=== PATIENT | female | born 1960 | race Caucasian/White ===

== ENCOUNTER 2016-12-05 15:00 | Emergency (ER) | payer OTHER ==
[~2016-12-05] VITALS: Ht 165.1 cm; Wt 63.8 kg
[2016-12-05] MEDS ORDERED: SODIUM CHLORIDE FLUSH 10ML SYR IVF ONE (15:30)
[2016-12-05] MEDS ORDERED: SODIUM CHLORIDE 0.9% 1,000ML IVBOLUS ONE (15:30)
[2016-12-05] MEDS ORDERED: PROCHLORPERAZINE 5 MG/ML, 2ML IVPush ONE (15:30)
[2016-12-05] MEDS ORDERED: DIAZEPAM 5 MG/ML, 2ML IV ONE (15:30)
[2016-12-05] MEDS ORDERED: DIAZEPAM 5 MG TABLET ONE (15:46)
[2016-12-05] MEDS ORDERED: DIAZEPAM 5 MG TABLET PO ONE (16:00)
[2016-12-05 16:05] LABS: BLOOD UREA NITROGEN 19 mg/dL (7-18)
[2016-12-05 16:09] LABS: IS PT STATUS REG ER OR PRE ER? YES
[2016-12-05] MEDS ORDERED: PROCHLORPERAZINE 5 MG/ML, 2ML ONE (16:55)
[2016-12-05 17:03] VITALS: BP 131/79
[2016-12-05] MEDS ORDERED: OMNIPAQUE 350 MG/ML, 100ML BOTTLE ONE (17:13)
== END 2016-12-05 18:32 | disposition home or self-care (01) ==
LOC: ED 15:37
DX: R42 Dizziness and giddiness (principal); R51 Headache
CPT/HCPCS: 36415; 70496; 70498; 80048; 82040; 83880; 84484; 85025; 93005; 96374; 99285; J0780; Q9967

== ENCOUNTER 2016-12-25 12:14 | Emergency (ER) | payer OTHER ==
[~2016-12-25] VITALS: Ht 165.1 cm; Wt 65.5 kg
[2016-12-25 12:15] VITALS: BP 129/85
== END 2016-12-25 13:11 | disposition home or self-care (01) ==
LOC: ED 13:09
DX: S16.1XXA Strain of muscle, fascia and tendon at neck level, initial encounter (principal); M54.12 Radiculopathy, cervical region; X58.XXXA Exposure to other specified factors, initial encounter; Y93.89 Activity, other specified; Y99.8 Other external cause status; Y92.89 Other specified places as the place of occurrence of the external cause
CPT/HCPCS: 99283; J7512

== ENCOUNTER → 2016-12-28 | Outpatient (CLI) | payer OTHER | END | disposition home or self-care (01) | LOC: CFH 14:21 | PROVIDERS: ATTEND Orthopaedic Surgery | DX: M47.892 Other spondylosis, cervical region (principal); M43.22 Fusion of spine, cervical region; M43.14 Spondylolisthesis, thoracic region; Z98.1 Arthrodesis status; Z98.890 Other specified postprocedural states | CPT/HCPCS: 72050; 72110 ==

== ENCOUNTER → 2017-12-22 | Outpatient (CLI) | payer OTHER ==
[2017-12-22 09:29] LABS: CHOL/HDL RATIO 2.6; LDL/HDL RATIO 1.4 (0.5-3.0)
[2017-12-22 10:04] LABS: HEMOGLOBIN A1C 5.1 % (4.2-6.3)
== END | disposition home or self-care (01) ==
LOC: CFH 07:39
PROVIDERS: ATTEND Family Medicine
DX: Z12.31 Encounter for screening mammogram for malignant neoplasm of breast (principal)
CPT/HCPCS: 36415; 80061; 83036; 86803; 77067

== ENCOUNTER → 2018-01-06 | Outpatient (CLI) | payer OTHER ==
[~2018-01-06] MED LIST: GADOBUTROL 10 MMOL/10 ML VIAL ONE
== END | disposition home or self-care (01) ==
LOC: CFH 13:27
PROVIDERS: ATTEND Family Medicine
DX: C50.411 Malignant neoplasm of upper-outer quadrant of right female breast (principal); Z88.0 Allergy status to penicillin
CPT/HCPCS: A9585; C8908

== ENCOUNTER 2018-02-11 09:26 | Day surgery (SDC) | payer OTHER ==
[~2018-02-11] VITALS: Ht 165.1 cm; Wt 64.2 kg
[~2018-02-11 09:26] MED LIST changes: +BUPIVACAINE/PF-EPI 0.5% 1:200K ONE; -CALCIUM PO; -GADOBUTROL 7.5 MMOL/7.5 ML VIAL ONE; +HEPARIN 1,000 UNITS/ML, 10ML ONE; -MAGNESIUM PO; -PROBIOTIC PO
[2018-02-11] MEDS ORDERED: LACTATED RINGERS 1,000 ML IV SCH (09:53)
[2018-02-11] MEDS ORDERED: GABAPENTIN 300 MG CAPSULE PO ONE (10:00)
[2018-02-11] MEDS ORDERED: SCOPOLAMINE PATCH, 1.5MG PATCH.TD72 TD ONE (10:00)
[2018-02-11] MEDS ORDERED: ONDANSETRON 2MG/ML, 2ML IVPush ONE (10:00)
[2018-02-11] MEDS ORDERED: ACETAMINOPHEN 500 MG TABLET PO ONE (10:00)
[2018-02-11] MEDS ORDERED: CALCIUM PO (10:02)
[2018-02-11] MEDS ORDERED: MAGNESIUM PO (10:02)
[2018-02-11] MEDS ORDERED: PROBIOTIC PO (10:03)
[2018-02-11 10:07] VITALS: BP 125/82
[2018-02-11] MEDS ORDERED: FENTANYL PF 100 MCG/2ML ONE ×2 (10:41→12:41)
[2018-02-11] MEDS ORDERED: MIDAZOLAM 1 MG/ML, 2ML ONE (10:41)
[2018-02-11] MEDS ORDERED: CEFAZOLIN 1,000 MG ONE (11:21)
[2018-02-11] MEDS ORDERED: DEXAMETHASONE 4 MG/ML, 1ML ONE (11:21)
[2018-02-11] MEDS ORDERED: PROPOFOL 10 MG/ML, 20ML ONE (11:21)
[2018-02-11] MEDS ORDERED: LIDOCAINE-MPF 2% ,5ML ONE (11:21)
[2018-02-11] MEDS ORDERED: PROMETHAZINE 25 MG/ML, 1ML IV PRN (11:30)
[2018-02-11] MEDS ORDERED: MORPHINE SULFATE 4 MG/ML, 1ML IVPush PRN (11:30)
[2018-02-11] MEDS ORDERED: FENTANYL PF 100 MCG/2ML IV PRN (11:30)
[2018-02-11] MEDS ORDERED: OXYcodone 5 MG/5 ML ORAL.SOL UDC PO PRN (11:30)
[2018-02-11] MEDS ORDERED: LORazepam 2 MG/ML, 1ML IVPush PRN (11:30)
[2018-02-11] MEDS ORDERED: ONDANSETRON 2MG/ML, 2ML IV PRN (11:30)
[2018-02-11] MEDS ORDERED: PROMETHAZINE 25 MG SUPP PR PRN (11:30)
[2018-02-11] MEDS ORDERED: OXYcodone 5 MG/5 ML ORAL.SOL UDC ONE (12:41)
== END 2018-02-11 14:00 | disposition home or self-care (01) ==
LOC: OUT 09:26
PROVIDERS: ATTEND Surgery
DX: Z45.2 Encounter for adjustment and management of vascular access device (principal); C50.911 Malignant neoplasm of unspecified site of right female breast; F41.9 Anxiety disorder, unspecified; Z98.890 Other specified postprocedural states; Z90.710 Acquired absence of both cervix and uterus; Z98.51 Tubal ligation status; Z72.89 Other problems related to lifestyle; Z88.0 Allergy status to penicillin
CPT/HCPCS: 36561; 71045; 77001; C1769; C1788; J0690; J1100; J1644; J2250; J2405; J2704; J3010; J3490; J7120

== ENCOUNTER → 2018-02-11 | Outpatient (CLI) | payer OTHER ==
[~2018-02-11] MED LIST changes: +CALCIUM PO; -GADOBUTROL 10 MMOL/10 ML VIAL ONE; +GADOBUTROL 7.5 MMOL/7.5 ML VIAL ONE; +MAGNESIUM PO; +PROBIOTIC PO
== END | disposition home or self-care (01) ==
LOC: CFH 06:44
PROVIDERS: ATTEND Surgery
DX: D05.12 Intraductal carcinoma in situ of left breast (principal)
CPT/HCPCS: 19085; 77065; 88305; A9585

== ENCOUNTER → 2018-02-18 | Outpatient (CLI) | payer OTHER ==
[~2018-02-18] MED LIST changes: -BUPIVACAINE/PF-EPI 0.5% 1:200K ONE; +CALCIUM PO; -HEPARIN 1,000 UNITS/ML, 10ML ONE; +MAGNESIUM PO; +PROBIOTIC PO
[2018-02-18 16:01] LABS: ALANINE AMINOTRANSFERASE 69 U/L (12-78); ALBUMIN 3.9 g/dL (3.4-5.0); ANION GAP 8 mmol/L (5-15); CALCIUM 9.1 mg/dL (8.5-10.1); CHLORIDE 107 mmol/L (98-107)
[2018-02-18 16:04] LABS: ALKALINE PHOSPHATASE 81 U/L (45-117); BILIRUBIN,TOTAL 0.4 mg/dL (0.2-1.0); TOTAL PROTEIN 7.3 g/dL (6.4-8.2)
[2018-02-18 16:10] LABS: BASOPHILS # (AUTO) 0.04 x10^3/uL (0-0.1); BASOPHILS % (AUTO) 0 % (0-1); EOSINOPHILS # (AUTO) 0.03 x10^3/uL (0-0.4); EOSINOPHILS % (AUTO) 0 % (1-7); LYMPHOCYTES % (AUTO) 13 % (22-44); MD NO; MEAN CORPUSCULAR HEMOGLOBIN 30.7 pg (27.0-34.8); MEAN CORPUSCULAR HGB CONC 33.5 g/dL (32.4-35.8); MEAN CORPUSCULAR VOLUME 91.8 fL (80-100); MEAN PLATELET VOLUME 8.8 fL (7.4-10.4); MONOCYTES # (AUTO) 0.57 x10^3/uL (0.2-0.8); MONOCYTES % (AUTO) 6 % (2-9); NEUTROPHILS # (AUTO) 7.26 x10^3/uL (1.8-6.8); NEUTROPHILS % (AUTO) 80 % (42-75); PLATELET COUNT 277 x10^3/uL (130-400); RED BLOOD COUNT 4.02 x10^6/uL (3.82-5.3); RED CELL DISTRIBUTION WIDTH 14.9 % (9.6-15.2)
== END | disposition home or self-care (01) ==
LOC: PETCFH 11:47
PROVIDERS: ATTEND Internal Medicine Hematology & Oncology
DX: R22.1 Localized swelling, mass and lump, neck (principal)
CPT/HCPCS: 36415; 78306; 80053; 85025; 93306; A9503

== ENCOUNTER → 2018-02-23 | Outpatient (CLI) | payer OTHER ==
[~2018-02-23] MED LIST changes: +CALC1CAP8 PO; +L.AC1CAP6 PO; +MAGN400T36 PO; +OMNIPAQUE 350 MG/ML, 100ML BOTTLE ONE
== END | disposition home or self-care (01) ==
LOC: CFH 11:50
PROVIDERS: ATTEND Internal Medicine Hematology & Oncology
DX: D73.4 Cyst of spleen (principal); M43.27 Fusion of spine, lumbosacral region; Z90.710 Acquired absence of both cervix and uterus
CPT/HCPCS: 71260; 74177; Q9967

== ENCOUNTER → 2018-03-07 | Outpatient (CLI) | payer OTHER ==
[~2018-03-07] MED LIST changes: -OMNIPAQUE 350 MG/ML, 100ML BOTTLE ONE
[2018-03-07 15:36] LABS: MEAN CORPUSCULAR HEMOGLOBIN 29.5 pg (27.0-34.8); MEAN CORPUSCULAR HGB CONC 33.1 g/dL (32.4-35.8); MEAN PLATELET VOLUME 7.2 fL (7.4-10.4); PLATELET COUNT 263 x10^3/uL (130-400); RED BLOOD COUNT 4.06 x10^6/uL (3.82-5.3); RED CELL DISTRIBUTION WIDTH 15.4 % (9.6-15.2)
[2018-03-07 15:48] LABS: ALBUMIN 3.7 g/dL (3.4-5.0); ANION GAP 8 mmol/L (5-15); CALCIUM 8.7 mg/dL (8.5-10.1); CHLORIDE 106 mmol/L (98-107)
[2018-03-07 15:51] LABS: ALANINE AMINOTRANSFERASE 46 U/L (12-78); ALKALINE PHOSPHATASE 145 U/L (45-117); BILIRUBIN,TOTAL 0.2 mg/dL (0.2-1.0); CREATININE 0.77 mg/dL (0.55-1.02)
[2018-03-07 16:07] LABS: MD YES
[2018-03-07 16:09] LABS: BAND#(MANUAL) 1.34 x10^3/uL; BANDS%(MANUAL) 6 % (0-7); LYMPH#(MANUAL) 2.69 x10^3/uL (1-3.4); LYMPHS% (MANUAL) 12 % (22-44); METAMYELOCYTES# (MANUAL) 0.22 x10^3/uL (0-0); METAMYELOCYTES% (MANUAL) 1 % (0-1); MONOS#(MANUAL) 1.12 x10^3/uL (0.3-2.7); MONOS% (MANUAL) 5 % (2-9); MYELOCYTES# (MANUAL) 0.22 x10^3/uL (0-0); MYELOCYTES% (MANUAL) 1 % (0-0); SEGS% (MANUAL) 75 % (42-75)
[2018-03-07 16:10] LABS: <RBC MORPHOLOGY> NORMAL; TOXIC GRAN 1+
[2018-03-07 16:11] LABS: <PLATELET ESTIMATE> ADEQUATE; <PLT MORPHOLOGY> NORMAL PLT MORPH
== END | disposition home or self-care (01) ==
LOC: LAB 15:20
PROVIDERS: ATTEND Internal Medicine Hematology & Oncology
DX: Z51.12 Encounter for antineoplastic immunotherapy (principal); C50.411 Malignant neoplasm of upper-outer quadrant of right female breast; D70.1 Agranulocytosis secondary to cancer chemotherapy
CPT/HCPCS: 36415; 80053; 85025

== ENCOUNTER 2018-03-25 13:50 | Emergency (ER) | payer OTHER ==
[~2018-03-25] VITALS: Ht 165.1 cm; Wt 60.0 kg
[2018-03-25] MEDS ORDERED: ONDANSETRON 2MG/ML, 2ML ONE (15:21)
[2018-03-25 15:29] LABS: BASOPHILS # (AUTO) 0.03 x10^3/uL (0-0.1); BASOPHILS % (AUTO) 1 % (0-1); EOSINOPHILS # (AUTO) 0.05 x10^3/uL (0-0.4); EOSINOPHILS % (AUTO) 1 % (1-7); LYMPHOCYTES # (AUTO) 1.89 x10^3/uL (1-3.4); LYMPHOCYTES % (AUTO) 29 % (22-44); MD NO; MEAN CORPUSCULAR HEMOGLOBIN 29.8 pg (27.0-34.8); MEAN CORPUSCULAR HGB CONC 33.1 g/dL (32.4-35.8); MEAN PLATELET VOLUME 7.8 fL (7.4-10.4); MONOCYTES # (AUTO) 0.92 x10^3/uL (0.2-0.8); MONOCYTES % (AUTO) 14 % (2-9); NEUTROPHILS # (AUTO) 3.55 x10^3/uL (1.8-6.8); NEUTROPHILS % (AUTO) 55 % (42-75); PLATELET COUNT 322 x10^3/uL (130-400); RED BLOOD COUNT 3.87 x10^6/uL (3.82-5.3); RED CELL DISTRIBUTION WIDTH 16.5 % (9.6-15.2)
[2018-03-25] MEDS ORDERED: SODIUM CHLORIDE 0.9% 1,000ML IVBOLUS ONE ×2 (15:30→16:00)
[2018-03-25] MEDS ORDERED: ONDANSETRON 2MG/ML, 2ML IVPush ONE (15:30)
[2018-03-25 15:42] LABS: ALBUMIN 3.6 g/dL (3.4-5.0); ANION GAP 7 mmol/L (5-15); CALCIUM 8.6 mg/dL (8.5-10.1); CHLORIDE 106 mmol/L (98-107)
[2018-03-25 15:43] LABS: CREATININE 0.73 mg/dL (0.55-1.02)
[2018-03-25 16:50] VITALS: BP 105/60
== END 2018-03-25 17:59 | disposition home or self-care (01) ==
LOC: ED 17:40
DX: E86.0 Dehydration (principal); R11.2 Nausea with vomiting, unspecified; M54.12 Radiculopathy, cervical region
CPT/HCPCS: 36415; 80048; 82040; 85025; 96361; 96374; 99284; J2405; J7030

== ENCOUNTER → 2018-04-11 | Outpatient (CLI) | payer OTHER ==
[2018-04-11 14:57] LABS: ALANINE AMINOTRANSFERASE 151 U/L (12-78); ALBUMIN 3.6 g/dL (3.4-5.0); ANION GAP 8 mmol/L (5-15); CALCIUM 8.9 mg/dL (8.5-10.1); CHLORIDE 106 mmol/L (98-107); CREATININE 0.58 mg/dL (0.55-1.02)
[2018-04-11 15:00] LABS: ALKALINE PHOSPHATASE 156 U/L (45-117); BILIRUBIN,TOTAL 0.4 mg/dL (0.2-1.0)
== END | disposition home or self-care (01) ==
LOC: LAB 14:27
PROVIDERS: ATTEND Internal Medicine Hematology & Oncology
DX: C50.411 Malignant neoplasm of upper-outer quadrant of right female breast (principal); D70.1 Agranulocytosis secondary to cancer chemotherapy
CPT/HCPCS: 36415; 80053

== ENCOUNTER → 2018-05-11 | Outpatient (CLI) | payer OTHER | END | disposition home or self-care (01) | LOC: CFH 09:50 | PROVIDERS: ATTEND Surgery | DX: C50.411 Malignant neoplasm of upper-outer quadrant of right female breast (principal) | CPT/HCPCS: 76641; 77065; G0279 ==

== ENCOUNTER 2018-05-12 08:28 | Outpatient (CLI) | payer OTHER ==
[2018-05-12] MEDS ORDERED: GADOBUTROL 7.5 MMOL/7.5 ML VIAL ONE (10:41)
== END 2018-05-12 23:59 | disposition home or self-care (01) ==
LOC: CFH 08:28
PROVIDERS: ATTEND Surgery
DX: C50.411 Malignant neoplasm of upper-outer quadrant of right female breast (principal)
CPT/HCPCS: 77049; A9585

== ENCOUNTER → 2018-06-22 | Outpatient (CLI) | payer OTHER | END | disposition home or self-care (01) | LOC: RAD 14:33 | PROVIDERS: ATTEND Surgery | DX: C50.911 Malignant neoplasm of unspecified site of right female breast (principal) | CPT/HCPCS: 38792; A9541 ==

== ENCOUNTER 2018-06-23 05:28 | Day surgery (SDC) | payer OTHER ==
[~2018-06-23] VITALS: Ht 165.1 cm; Wt 63.9 kg
[~2018-06-23 05:28] MED LIST changes: +LIDOCAINE 1%, 20ML ONE; +LIDOCAINE-MPF 1%, 5ML ONE; +SODIUM BICARBONATE 4.0%, 5ML ONE
[2018-06-23] MEDS ORDERED: LACTATED RINGERS 1,000 ML IV SCH (06:12)
[2018-06-23 06:14] VITALS: BP 119/59
[2018-06-23] MEDS ORDERED: BACITRACIN 50,000 UNIT ONE (06:25)
[2018-06-23] MEDS ORDERED: BUPIVACAINE/PF-EPI 0.5% 1:200K ONE (06:25)
[2018-06-23] MEDS ORDERED: ISOSULFAN BLUE 10 MG/ML, 5ML IV ONE (06:25)
[2018-06-23] MEDS ORDERED: GENTAMICIN 80 MG/2 ML ONE (06:25)
[2018-06-23] MEDS ORDERED: CEFAZOLIN 1,000 MG ONE ×2 (06:25→15:25)
[2018-06-23] MEDS ORDERED: SCOPOLAMINE PATCH, 1.5MG PATCH.TD72 TD ONE (06:30)
[2018-06-23] MEDS ORDERED: ACETAMINOPHEN 500 MG TABLET PO ONE (06:30)
[2018-06-23] MEDS ORDERED: GABAPENTIN 300 MG CAPSULE PO ONE (06:30)
[2018-06-23] MEDS ORDERED: ONDANSETRON 2MG/ML, 2ML IVPush ONE (06:30)
[2018-06-23] MEDS ORDERED: FENTANYL PF 250 MCG/5ML ONE (06:55)
[2018-06-23] MEDS ORDERED: MIDAZOLAM 1 MG/ML, 2ML ONE (06:55)
[2018-06-23] MEDS ORDERED: ONDANSETRON 2MG/ML, 2ML IVPush PRN (08:00)
[2018-06-23] MEDS ORDERED: METOCLOPRAMIDE 5 MG/ML, 2ML IV PRN (08:00)
[2018-06-23] MEDS ORDERED: ALBUTEROL SULFATE 2.5 MG/3 ML NPPB PRN (08:00)
[2018-06-23] MEDS ORDERED: PROMETHAZINE 25 MG/ML, 1ML IV PRN (08:00)
[2018-06-23] MEDS ORDERED: LABETALOL 5MG/ML, 20ML IV PRN (08:00)
[2018-06-23] MEDS ORDERED: KETOROLAC 30 MG/1 ML IV PRN (08:00)
[2018-06-23] MEDS ORDERED: hydrALAzine 20 MG/ML, 1ML IV PRN (08:00)
[2018-06-23] MEDS ORDERED: OXYcodone 5 MG/5 ML ORAL.SOL UDC PO PRN (08:00)
[2018-06-23] MEDS ORDERED: HYDROmorphone 1 MG/ML, 1ML IV PRN (08:00)
[2018-06-23] MEDS: FENTANYL PF 100 MCG/2ML IV PRN ×2 (10:45→10:55)
[2018-06-23] MEDS ORDERED: FENTANYL PF 100 MCG/2ML ONE (10:47)
[2018-06-23] MEDS ORDERED: OXYcodone 5 MG/5 ML ORAL.SOL UDC ONE (10:48)
[2018-06-23] MEDS ORDERED: MEPERIDINE/PF 25MG/ML,1ML ONE (10:56)
[2018-06-23] MEDS ORDERED: KETOROLAC 30 MG/1 ML ONE (10:56)
[2018-06-23] MEDS: MEPERIDINE/PF 25MG/0.5ML IVPush PRN ×2 (11:10→11:25)
[2018-06-23] MEDS ORDERED: morphine SULFATE 10 MG/ML, 1ML IVPush PRN (12:30)
[2018-06-23] MEDS ORDERED: PROPOFOL 10 MG/ML, 20ML ONE (15:25)
[2018-06-23] MEDS ORDERED: ONDANSETRON 2MG/ML, 2ML ONE (15:25)
[2018-06-23] MEDS ORDERED: ROCURONIUM 10MG/ML,5ML ONE (15:25)
[2018-06-23] MEDS ORDERED: DEXAMETHASONE 4 MG/ML, 1ML ONE (15:25)
[2018-06-23] MEDS ORDERED: SUCCINYLCHOLINE 20 MG/ML, 10ML ONE (15:25)
== END 2018-06-23 16:00 | disposition home or self-care (01) ==
LOC: OUT 05:28
PROVIDERS: ATTEND Surgery
DX: D05.11 Intraductal carcinoma in situ of right breast (principal); D05.12 Intraductal carcinoma in situ of left breast; R59.1 Generalized enlarged lymph nodes; F41.9 Anxiety disorder, unspecified; Z88.0 Allergy status to penicillin; Z90.710 Acquired absence of both cervix and uterus; Z98.890 Other specified postprocedural states; Z98.51 Tubal ligation status; Z72.89 Other problems related to lifestyle
CPT/HCPCS: 15777; 19303; 19357; 38525; 76098; 88305; 88307; 88329; 88333; C1729; C1762; J0330; J0690; J1100; J1580; J1885; J2175; J2250; J2270; J2405; J2704; J3010; J7120; J3490

== ENCOUNTER → 2018-08-04 | Outpatient (CLI) | payer OTHER ==
[~2018-08-04] MED LIST changes: +GABA300C10 PO; -LIDOCAINE 1%, 20ML ONE; -LIDOCAINE-MPF 1%, 5ML ONE; -SODIUM BICARBONATE 4.0%, 5ML ONE
[2018-08-04 10:00] LABS: ALANINE AMINOTRANSFERASE 84 U/L (12-78); ALBUMIN 3.9 g/dL (3.4-5.0); ANION GAP 5 mmol/L (5-15); CALCIUM 9.5 mg/dL (8.5-10.1); CHLORIDE 108 mmol/L (98-107); CREATININE 0.79 mg/dL (0.55-1.02)
[2018-08-04 10:04] LABS: ALKALINE PHOSPHATASE 123 U/L (45-117); BILIRUBIN,TOTAL 0.5 mg/dL (0.2-1.0); TOTAL PROTEIN 7.2 g/dL (6.4-8.2)
== END | disposition home or self-care (01) ==
LOC: LAB 09:23
PROVIDERS: ATTEND Family Medicine
DX: R94.5 Abnormal results of liver function studies (principal)
CPT/HCPCS: 36415; 80053

== ENCOUNTER → 2018-08-19 | Outpatient (CLI) | payer OTHER ==
[2018-08-19 10:29] LABS: ALANINE AMINOTRANSFERASE 68 U/L (12-78); ALBUMIN 3.9 g/dL (3.4-5.0); ANION GAP 8 mmol/L (5-15); CALCIUM 9.3 mg/dL (8.5-10.1); CHLORIDE 106 mmol/L (98-107); CREATININE 0.73 mg/dL (0.55-1.02)
[2018-08-19 10:31] LABS: ALKALINE PHOSPHATASE 116 U/L (45-117); BILIRUBIN,TOTAL 0.6 mg/dL (0.2-1.0); TOTAL PROTEIN 7.4 g/dL (6.4-8.2)
== END | disposition home or self-care (01) ==
LOC: LAB 10:07
PROVIDERS: ATTEND Family Medicine
DX: R94.5 Abnormal results of liver function studies (principal)
CPT/HCPCS: 36415; 80053

== ENCOUNTER 2018-09-12 14:18 | Outpatient (CLI) | payer OTHER ==
[2018-09-12 15:15] LABS: BASOPHILS # (AUTO) 0.02 x10^3/uL (0-0.1); BASOPHILS % (AUTO) 1 % (0-1); EOSINOPHILS # (AUTO) 0.13 x10^3/uL (0-0.4); EOSINOPHILS % (AUTO) 3 % (1-7); LYMPHOCYTES # (AUTO) 1.66 x10^3/uL (1-3.4); LYMPHOCYTES % (AUTO) 35 % (22-44); MD NO; MEAN CORPUSCULAR HEMOGLOBIN 27.8 pg (27.0-34.8); MEAN CORPUSCULAR HGB CONC 32.3 g/dL (32.4-35.8); MEAN CORPUSCULAR VOLUME 86.2 fL (80-100); MEAN PLATELET VOLUME 7.2 fL (7.4-10.4); MONOCYTES # (AUTO) 0.34 x10^3/uL (0.2-0.8); MONOCYTES % (AUTO) 7 % (2-9); NEUTROPHILS # (AUTO) 2.63 x10^3/uL (1.8-6.8); NEUTROPHILS % (AUTO) 55 % (42-75); PLATELET COUNT 288 x10^3/uL (130-400); RED BLOOD COUNT 3.74 x10^6/uL (3.82-5.3); RED CELL DISTRIBUTION WIDTH 16.2 % (9.6-15.2)
[2018-09-12] MEDS ORDERED: FLUO10TA PO (15:40)
== END 2018-09-12 23:59 | disposition home or self-care (01) ==
LOC: STAR 14:18
PROVIDERS: ATTEND Plastic Surgery
DX: Z01.818 Encounter for other preprocedural examination (principal); C50.411 Malignant neoplasm of upper-outer quadrant of right female breast
CPT/HCPCS: 36415; 85025; 93005

== ENCOUNTER 2018-09-19 12:31 | Day surgery (SDC) | payer OTHER ==
[~2018-09-19] VITALS: Ht 165.1 cm; Wt 65.8 kg
[~2018-09-19 12:31] MED LIST changes: +FLUO10TA PO
[2018-09-19] MEDS ORDERED: LACTATED RINGERS 1,000 ML IV SCH (12:44)
[2018-09-19 13:00] VITALS: BP 125/59
[2018-09-19] MEDS ORDERED: GABAPENTIN 300 MG CAPSULE PO ONE (13:00)
[2018-09-19] MEDS ORDERED: SCOPOLAMINE PATCH, 1.5MG PATCH.TD72 TD ONE (13:00)
[2018-09-19] MEDS ORDERED: ACETAMINOPHEN 500 MG TABLET PO ONE (13:00)
[2018-09-19] MEDS ORDERED: DIAZEPAM 5 MG TABLET PO ONE (13:00)
[2018-09-19] MEDS ORDERED: PROMETHAZINE 25 MG/ML, 1ML IV PRN (13:30)
[2018-09-19] MEDS ORDERED: OXYcodone 5 MG/5 ML ORAL.SOL UDC PO PRN (13:30)
[2018-09-19] MEDS ORDERED: hydrALAzine 20 MG/ML, 1ML IV PRN (13:30)
[2018-09-19] MEDS ORDERED: METOPROLOL 1 MG/ML, 5ML IV PRN (13:30)
[2018-09-19] MEDS ORDERED: PROCHLORPERAZINE 5 MG/ML, 2ML IV PRN (13:30)
[2018-09-19] MEDS ORDERED: HYDROmorphone 2 MG/ML, 1ML IVPush PRN (13:30)
[2018-09-19] MEDS ORDERED: DIPHENHYDRAMINE 50 MG/ML, 1ML IVPush PRN (13:30)
[2018-09-19] MEDS ORDERED: LABETALOL 5MG/ML, 20ML IV PRN (13:30)
[2018-09-19] MEDS ORDERED: MEPERIDINE/PF 25MG/0.5ML IVPush PRN (13:30)
[2018-09-19] MEDS ORDERED: HALOPERIDOL 5 MG/ML IV PRN (13:30)
[2018-09-19] MEDS ORDERED: FENTANYL PF 250 MCG/5ML ONE (13:31)
[2018-09-19] MEDS ORDERED: MIDAZOLAM 1 MG/ML, 2ML ONE (13:31)
[2018-09-19] MEDS ORDERED: CEFAZOLIN 1,000 MG ONE ×2 (13:52→16:13)
[2018-09-19] MEDS ORDERED: GENTAMICIN 80 MG/2 ML ONE (13:52)
[2018-09-19] MEDS ORDERED: LIDOCAINE-MPF 2% ,5ML ONE (13:53)
[2018-09-19] MEDS ORDERED: BACITRACIN 50,000 UNIT ONE (13:53)
[2018-09-19] MEDS ORDERED: EPINEPHRINE 1 MG/ML, 1ML ONE (13:53)
[2018-09-19] MEDS ORDERED: SODIUM BICARBONATE 1 MEQ/ML, 50ML VIAL ONE (13:53)
[2018-09-19] MEDS ORDERED: ROCURONIUM 10 MG/ML,10ML ONE (14:52)
[2018-09-19] MEDS ORDERED: NEOSTIGMINE 1 MG/ML, 10ML ONE (16:13)
[2018-09-19] MEDS ORDERED: GLYCOPYRROLATE 0.2MG/1ML, 5ML ONE (16:13)
[2018-09-19] MEDS ORDERED: DEXAMETHASONE 4 MG/ML, 1ML ONE (16:13)
[2018-09-19] MEDS ORDERED: SUCCINYLCHOLINE 20 MG/ML, 10ML ONE (16:13)
[2018-09-19] MEDS ORDERED: PROPOFOL 10 MG/ML, 20ML ONE (16:13)
[2018-09-19] MEDS ORDERED: ONDANSETRON 2MG/ML, 2ML ONE (16:13)
[2018-09-19] MEDS ORDERED: FENTANYL PF 100 MCG/2ML ONE (16:35)
[2018-09-19] MEDS ORDERED: OXYcodone 5 MG/5 ML ORAL.SOL UDC ONE (16:36)
[2018-09-19] MEDS: FENTANYL PF 100 MCG/2ML IV PRN ×3 (16:40→17:25)
[2018-09-19] MEDS ORDERED: MEPERIDINE/PF 25MG/ML,1ML ONE (17:10)
[2018-09-19] MEDS ORDERED: morphine SULFATE 10 MG/ML, 1ML ONE (18:05)
[2018-09-19] MEDS ORDERED: morphine SULFATE 10 MG/ML, 1ML IVPush PRN (18:30)
[2018-09-19] MEDS ORDERED: KETOROLAC 30 MG/1 ML ONE (18:45)
[2018-09-19] MEDS ORDERED: KETOROLAC 30 MG/1 ML IVPush ONE (19:00)
== END 2018-09-19 21:27 | disposition home or self-care (01) ==
LOC: OUT 12:31 → 4NOR 19:33 → OUT 21:27
PROVIDERS: ATTEND Plastic Surgery
DX: N65.1 Disproportion of reconstructed breast (principal); Z85.3 Personal history of malignant neoplasm of breast
CPT/HCPCS: 11970; 19366; 20926; C1729; C1789; J0171; J0330; J0690; J1100; J1580; J1885; J2175; J2250; J2405; J2704; J2710; J3010; J7120; G0378

== ENCOUNTER 2018-10-19 08:45 | Outpatient (CLI) | payer OTHER ==
[2018-10-19] MEDS ORDERED: GADOBUTROL 7.5 MMOL/7.5 ML PFS ONE (09:39)
== END 2018-10-19 23:59 | disposition home or self-care (01) ==
LOC: CFH 08:45
PROVIDERS: ATTEND Family Medicine
DX: R51 Headache (principal)
CPT/HCPCS: 70553; A9585

== ENCOUNTER 2018-12-12 09:24 | Outpatient (CLI) | payer OTHER ==
[~2018-12-12] VITALS: Ht 165.1 cm; Wt 67.5 kg
[2018-12-12 12:15] VITALS: BP 119/77
== END 2018-12-12 23:59 | disposition home or self-care (01) ==
LOC: INFUSION 09:24
PROVIDERS: ATTEND Internal Medicine Hematology & Oncology
DX: Z51.11 Encounter for antineoplastic chemotherapy (principal); C50.411 Malignant neoplasm of upper-outer quadrant of right female breast; F41.9 Anxiety disorder, unspecified; Z90.710 Acquired absence of both cervix and uterus; Z17.0 Estrogen receptor positive status [ER+]
CPT/HCPCS: 36415; 36591; 80053; 85025; 96413; J7050; J9355

== ENCOUNTER 2018-12-19 10:04 | Outpatient (CLI) | payer OTHER | END 2018-12-19 23:59 | disposition home or self-care (01) | LOC: CFH 10:04 | PROVIDERS: ATTEND Internal Medicine Hematology & Oncology | DX: C50.411 Malignant neoplasm of upper-outer quadrant of right female breast (principal); I08.8 Other rheumatic multiple valve diseases | CPT/HCPCS: 0399T; 93306 ==

== ENCOUNTER 2019-02-27 08:44 | Outpatient (CLI) | payer OTHER ==
[2019-02-27] MEDS ORDERED: OMNIPAQUE 350 MG/ML, 100ML BOTTLE ONE (15:10)
== END 2019-02-27 23:59 | disposition home or self-care (01) ==
LOC: CFH 08:44
PROVIDERS: ATTEND Internal Medicine Hematology & Oncology
DX: C50.411 Malignant neoplasm of upper-outer quadrant of right female breast (principal); E04.1 Nontoxic single thyroid nodule; D73.4 Cyst of spleen
CPT/HCPCS: 71260; 74177; Q9967

== ENCOUNTER → 2019-05-31 | Outpatient (CLI) | payer OTHER ==
[~2019-05-31] MED LIST changes: +BLOOD BUILDER PO; +CHOL100011 PO; +FLUO20CA19 PO; +biotin PO
[2019-05-31 11:23] LABS: BASOPHILS # (AUTO) 0.02 x10^3/uL (0-0.1); BASOPHILS % (AUTO) 1 % (0-1); EOSINOPHILS % (AUTO) 2 % (1-7); LYMPHOCYTES # (AUTO) 1.46 x10^3/uL (1-3.4); LYMPHOCYTES % (AUTO) 29 % (22-44); MD NO; MEAN CORPUSCULAR HEMOGLOBIN 32.8 pg (27.0-34.8); MEAN CORPUSCULAR HGB CONC 33.4 g/dL (32.4-35.8); MEAN CORPUSCULAR VOLUME 98.1 fL (80-100); MEAN PLATELET VOLUME 7.8 fL (7.4-10.4); MONOCYTES # (AUTO) 0.32 x10^3/uL (0.2-0.8); MONOCYTES % (AUTO) 6 % (2-9); NEUTROPHILS % (AUTO) 63 % (42-75); PLATELET COUNT 231 x10^3/uL (130-400); RED BLOOD COUNT 4.13 x10^6/uL (3.82-5.3); RED CELL DISTRIBUTION WIDTH 12.8 % (9.6-15.2)
== END | disposition home or self-care (01) ==
LOC: STAR 10:30
PROVIDERS: ATTEND Dermatology
DX: Z01.818 Encounter for other preprocedural examination (principal); C50.411 Malignant neoplasm of upper-outer quadrant of right female breast; N65.0 Deformity of reconstructed breast; Z85.3 Personal history of malignant neoplasm of breast; Z88.0 Allergy status to penicillin
CPT/HCPCS: 36415; 85025; 93005

== ENCOUNTER 2019-06-08 06:02 | Day surgery (SDC) | payer OTHER ==
[2019-05-31 10:54] VITALS: BP 117/52
[~2019-06-08] VITALS: Ht 165.1 cm; Wt 61.0 kg
[2019-06-08] MEDS ORDERED: CEFAZOLIN 1,000 MG ONE ×3 (06:49→07:52)
[2019-06-08] MEDS ORDERED: BUPIVACAINE/PF 0.5% ONE (06:49)
[2019-06-08] MEDS ORDERED: EPINEPHRINE 1 MG/ML, 1ML ONE (06:50)
[2019-06-08] MEDS ORDERED: BACITRACIN 50,000 UNIT ONE ×2 (06:50→07:52)
[2019-06-08] MEDS ORDERED: GENTAMICIN 80 MG/2 ML ONE ×2 (06:50→07:52)
[2019-06-08] MEDS ORDERED: ONDANSETRON 2MG/ML, 2ML ONE (07:02)
[2019-06-08] MEDS ORDERED: DEXAMETHASONE 4 MG/ML, 1ML ONE ×2 (07:02→08:31)
[2019-06-08] MEDS ORDERED: FENTANYL PF 250 MCG/5ML ONE (07:02)
[2019-06-08] MEDS ORDERED: MIDAZOLAM 1 MG/ML, 2ML ONE (07:02)
[2019-06-08] MEDS ORDERED: PROPOFOL 10 MG/ML, 20ML ONE (07:02)
[2019-06-08] MEDS ORDERED: ACETAMINOPHEN 500 MG TABLET PO ONE (07:30)
[2019-06-08] MEDS ORDERED: hydrALAzine 20 MG/ML, 1ML IV PRN (07:30)
[2019-06-08] MEDS ORDERED: FAMOTIDINE 20 MG TABLET PO ONE (07:30)
[2019-06-08] MEDS ORDERED: ONDANSETRON 2MG/ML, 2ML IV PRN (07:30)
[2019-06-08] MEDS ORDERED: MEPERIDINE/PF 25MG/ML,1ML IVPush PRN (07:30)
[2019-06-08] MEDS ORDERED: LABETALOL 5MG/ML, 20ML IV PRN (07:30)
[2019-06-08] MEDS ORDERED: GABAPENTIN 300 MG CAPSULE PO ONE (07:30)
[2019-06-08] MEDS ORDERED: HYDROmorphone 2 MG/ML, 1ML IVPush PRN (07:30)
[2019-06-08] MEDS ORDERED: OXYcodone 5 MG/5 ML ORAL.SOL UDC PO PRN (07:30)
[2019-06-08] MEDS ORDERED: PROMETHAZINE 25 MG/ML, 1ML IV PRN (07:30)
[2019-06-08] MEDS ORDERED: FENTANYL PF 100 MCG/2ML ONE (10:05)
[2019-06-08] MEDS ORDERED: OXYcodone 5 MG/5 ML ORAL.SOL UDC ONE (10:05)
[2019-06-08] MEDS: FENTANYL PF 100 MCG/2ML IV PRN ×2 (10:06→10:20)
[2019-06-08] MEDS ORDERED: MEPERIDINE/PF 25MG/ML,1ML ONE (10:10)
== END 2019-06-08 13:00 | disposition home or self-care (01) ==
LOC: OUT 06:02
PROVIDERS: ATTEND Plastic Surgery
DX: N65.1 Disproportion of reconstructed breast (principal); N65.0 Deformity of reconstructed breast; D05.02 Lobular carcinoma in situ of left breast; D05.11 Intraductal carcinoma in situ of right breast; L91.0 Hypertrophic scar; Z98.51 Tubal ligation status; Z90.710 Acquired absence of both cervix and uterus; Z88.0 Allergy status to penicillin
CPT/HCPCS: 19340; 19350; 19371; 19380; C1729; C1789; J0171; J0690; J1100; J1580; J2175; J2250; J2405; J2704; J3010

== ENCOUNTER → 2019-06-15 | Outpatient (CLI) | payer OTHER | END | disposition home or self-care (01) | LOC: LAB 13:00 | PROVIDERS: ATTEND Family Medicine | DX: Z11.1 Encounter for screening for respiratory tuberculosis (principal) | CPT/HCPCS: 36415; 86480 ==

== ENCOUNTER → 2019-07-18 | Outpatient (CLI) | payer OTHER | END | disposition home or self-care (01) | LOC: RAD 10:00 | PROVIDERS: ATTEND Internal Medicine Hematology & Oncology | DX: C50.411 Malignant neoplasm of upper-outer quadrant of right female breast (principal); M51.36 Other intervertebral disc degeneration, lumbar region | CPT/HCPCS: 78306; A9503 ==

== ENCOUNTER → 2020-01-04 | Outpatient (CLI) | payer OTHER | END | disposition home or self-care (01) | LOC: CFH 14:51 | PROVIDERS: ATTEND Nurse Practitioner | DX: Z78.0 Asymptomatic menopausal state (principal) | CPT/HCPCS: 36415; 82670; 83001; 83002 ==

== ENCOUNTER → 2020-01-25 | Outpatient (CLI) | payer OTHER ==
[2020-01-25 13:47] LABS: BASOPHILS # (AUTO) 0.02 x10^3/uL (0-0.1); BASOPHILS % (AUTO) 0 % (0-1); EOSINOPHILS # (AUTO) 0.12 x10^3/uL (0-0.4); EOSINOPHILS % (AUTO) 3 % (1-7); LYMPHOCYTES # (AUTO) 1.55 x10^3/uL (1-3.4); LYMPHOCYTES % (AUTO) 32 % (22-44); MD NO; MEAN CORPUSCULAR HEMOGLOBIN 32.2 pg (27.0-34.8); MEAN CORPUSCULAR HGB CONC 33.3 g/dL (32.4-35.8); MEAN CORPUSCULAR VOLUME 96.5 fL (80-100); MEAN PLATELET VOLUME 7.4 fL (7.4-10.4); MONOCYTES # (AUTO) 0.32 x10^3/uL (0.2-0.8); MONOCYTES % (AUTO) 7 % (2-9); NEUTROPHILS # (AUTO) 2.82 x10^3/uL (1.8-6.8); NEUTROPHILS % (AUTO) 58 % (42-75); PLATELET COUNT 251 x10^3/uL (130-400); RED BLOOD COUNT 4.14 x10^6/uL (3.82-5.3); RED CELL DISTRIBUTION WIDTH 13.1 % (9.6-15.2)
[2020-01-25 13:58] LABS: ALANINE AMINOTRANSFERASE 36 U/L (12-78); ALBUMIN 3.8 g/dL (3.4-5.0); ANION GAP 5 mmol/L (5-15); CALCIUM 9.3 mg/dL (8.5-10.1); CHLORIDE 108 mmol/L (98-107)
[2020-01-25 14:01] LABS: ALKALINE PHOSPHATASE 91 U/L (45-117); BILIRUBIN,TOTAL 0.5 mg/dL (0.2-1.0); TOTAL PROTEIN 7.3 g/dL (6.4-8.2)
== END | disposition home or self-care (01) ==
LOC: LAB 13:30
PROVIDERS: ATTEND Internal Medicine Hematology & Oncology
DX: Z51.11 Encounter for antineoplastic chemotherapy (principal); Z51.12 Encounter for antineoplastic immunotherapy; C50.411 Malignant neoplasm of upper-outer quadrant of right female breast; D70.1 Agranulocytosis secondary to cancer chemotherapy; L30.8 Other specified dermatitis; R79.89 Other specified abnormal findings of blood chemistry
CPT/HCPCS: 36415; 80053; 85025; 86038; 86430

== ENCOUNTER → 2020-01-31 | Outpatient (CLI) | payer OTHER | END | disposition home or self-care (01) | LOC: CFH 15:54 | PROVIDERS: ATTEND Family Medicine | DX: M51.34 Other intervertebral disc degeneration, thoracic region (principal); M47.814 Spondylosis without myelopathy or radiculopathy, thoracic region | CPT/HCPCS: 72146 ==

== ENCOUNTER → 2020-02-01 | Outpatient (CLI) | payer OTHER | END | disposition home or self-care (01) | LOC: RAD 11:06 | PROVIDERS: ATTEND Internal Medicine Hematology & Oncology | DX: C50.411 Malignant neoplasm of upper-outer quadrant of right female breast (principal) | CPT/HCPCS: 78306; A9503 ==

== ENCOUNTER 2020-02-13 09:20 | Outpatient (CLI) | payer OTHER | END 2020-02-13 23:59 | disposition home or self-care (01) | LOC: CFH 09:20 | PROVIDERS: ATTEND Internal Medicine Hematology & Oncology | DX: N60.02 Solitary cyst of left breast (principal); N63.22 Unspecified lump in the left breast, upper inner quadrant; Z85.3 Personal history of malignant neoplasm of breast; Z98.82 Breast implant status; Z90.13 Acquired absence of bilateral breasts and nipples | CPT/HCPCS: 76642 ==

== ENCOUNTER 2020-02-14 07:41 | Outpatient (CLI) | payer OTHER | END 2020-02-14 23:59 | disposition home or self-care (01) | LOC: CFH 07:41 | PROVIDERS: ATTEND Plastic Surgery | DX: N63.20 Unspecified lump in the left breast, unspecified quadrant (principal); C50.411 Malignant neoplasm of upper-outer quadrant of right female breast; Z88.0 Allergy status to penicillin; Z79.899 Other long term (current) drug therapy; Z72.89 Other problems related to lifestyle; Z83.3 Family history of diabetes mellitus; Z82.49 Family history of ischemic heart disease and other diseases of the circulatory system | CPT/HCPCS: 19083 ==

== ENCOUNTER → 2020-03-11 | Outpatient (CLI) | payer OTHER ==
[~2020-03-11] MED LIST changes: +GADOTERATE 7.5 MMOL/15 ML VIAL ONE
[2020-03-11 15:25] LABS: HCT (SEDRATE) 40.3 % (34.6-47.8)
== END | disposition home or self-care (01) ==
LOC: RAD 13:11
PROVIDERS: ATTEND Physician Assistant Surgical
DX: M51.34 Other intervertebral disc degeneration, thoracic region (principal)
CPT/HCPCS: 36415; 72157; 84145; 85651; 86140; A9575

== ENCOUNTER 2020-06-03 08:56 | Outpatient (CLI) | payer OTHER ==
[~2020-06-03 08:56] MED LIST changes: -GADOTERATE 7.5 MMOL/15 ML VIAL ONE
[2020-06-03 09:31] LABS: BASOPHILS % (AUTO) 1 % (0-1); EOSINOPHILS % (AUTO) 5 % (1-7); LYMPHOCYTES % (AUTO) 39 % (22-44); MD NO; MEAN CORPUSCULAR HEMOGLOBIN 32.7 pg (27.0-34.8); MEAN CORPUSCULAR HGB CONC 34.8 g/dL (32.4-35.8); MEAN PLATELET VOLUME 7.6 fL (7.4-10.4); MONOCYTES % (AUTO) 7 % (2-9); NEUTROPHILS % (AUTO) 48 % (42-75); PLATELET COUNT 237 x10^3/uL (130-400); RED BLOOD COUNT 4.11 x10^6/uL (3.82-5.3); RED CELL DISTRIBUTION WIDTH 13.2 % (9.6-15.2)
[2020-06-03 09:36] LABS: CHLORIDE 107 mmol/L (98-107)
[2020-06-03 09:55] LABS: ALANINE AMINOTRANSFERASE 32 U/L (12-78); ALBUMIN 3.9 g/dL (3.4-5.0); ALKALINE PHOSPHATASE 105 U/L (45-117); ANION GAP 6 mmol/L (5-15); BILIRUBIN,TOTAL 0.4 mg/dL (0.2-1.0); CALCIUM 9.2 mg/dL (8.5-10.1); CHOL/HDL RATIO 2.9; CHOLESTEROL, TOTAL 215 mg/dL (140-239); CREATININE 0.82 mg/dL (0.55-1.02); HDL CHOL % 35 % (28-40); HDL CHOLESTEROL (DIRECT) 75 mg/dL (40-60); HIGH-SENSITIVITY CRP 0.04 mg/dL (0.02-0.30); LDL CHOLESTEROL,CALCULATED 129 mg/dL (54-169); LDL/HDL RATIO 1.7 (0.5-3.0); TOTAL PROTEIN 7.2 g/dL (6.4-8.2); TRIGLYCERIDES 53 mg/dL (50-200); VLDL CHOLESTEROL 11 mg/dL (0-25)
== END 2020-06-03 23:59 | disposition home or self-care (01) ==
LOC: LAB 08:56
PROVIDERS: ATTEND Family Medicine
DX: E11.9 Type 2 diabetes mellitus without complications (principal); D64.9 Anemia, unspecified; E03.9 Hypothyroidism, unspecified; E78.5 Hyperlipidemia, unspecified; E06.3 Autoimmune thyroiditis; M10.9 Gout, unspecified; E23.7 Disorder of pituitary gland, unspecified; E16.1 Other hypoglycemia; R79.82 Elevated C-reactive protein (CRP); N95.1 Menopausal and female climacteric states; R62.7 Adult failure to thrive
CPT/HCPCS: 36415; 80053; 80061; 82306; 82670; 82679; 83036; 83090; 83525; 84140; 84144; 84146; 84305; 84402; 84403; 84443; 84481; 84482; 85025; 86141; 86376; 86800

== ENCOUNTER → 2020-07-04 | Outpatient (CLI) | payer OTHER | END | disposition home or self-care (01) | LOC: CFH 10:19 | PROVIDERS: ATTEND Orthopaedic Surgery | DX: M51.14 Intervertebral disc disorders with radiculopathy, thoracic region (principal); Z98.1 Arthrodesis status | CPT/HCPCS: 72148 ==

== ENCOUNTER 2020-07-05 10:40 | Outpatient (CLI) | payer OTHER | END 2020-07-05 23:59 | disposition home or self-care (01) | LOC: CFH 10:40 | PROVIDERS: ATTEND Orthopaedic Surgery | DX: M85.88 Other specified disorders of bone density and structure, other site (principal); M60.9 Myositis, unspecified | CPT/HCPCS: 77080 ==